=== PATIENT | male | born 1985 | race Caucasian/White ===

== ENCOUNTER 2017-11-03 11:17 | Day surgery (SDC) | payer OTHER ==
[~2017-11-03] VITALS: Ht 185.4 cm; Wt 117.3 kg
[~2017-11-03 11:17] MED LIST: PERCOCET 10/1 TABLET PO
[2017-11-03 11:40] VITALS: BP 133/81
[2017-11-03] MEDS ORDERED: OXYCODONE-APAP1 EACH PO (16:51)
[2017-11-03 18:31] VITALS: BP 130/85
[2017-11-03 20:15] VITALS: BP 131/83
[2017-11-03 23:59] VITALS: BP 137/70
[2017-11-04 04:16] VITALS: BP 132/70
[2017-11-04 07:22] VITALS: BP 146/68
[2017-11-04 10:59] VITALS: BP 174/72
[2017-11-04 11:19] VITALS: BP 155/72
[2017-11-04 16:27] VITALS: BP 150/77
[2017-11-04 20:47] VITALS: BP 139/80
[2017-11-05 00:18] VITALS: BP 138/76
[2017-11-05 04:23] VITALS: BP 139/76
[2017-11-05 07:20] LABS: BASOPHIL (%) 0.2 % (0-1); EOSINOPHIL (%) 0.2 % (0-5); HEMATOCRIT 39.5 % (38.0-50.0); HEMOGLOBIN 13.6 G/DL (12.5-16.6); IMMATURE GRANULOCYTE (%) 0.3 % (0.0-0.7); LYMPHOCYTE (%) 24.6 % (15-42); LYMPHOCYTE COUNT 1.6 K/uL (1.0-2.8); MCH 30.6 PG (29.0-34.0); MCHC 34.4 G/DL (30.0-36.0); MONOCYTE (%) 8.1 % (3-12); MONOCYTE COUNT 0.5 K/uL (0-0.8); NEUTROPHIL (%) 66.6 % (45-76); NEUTROPHIL COUNT 4.3 K/uL (1.8-6.4); RBC DIS.WIDTH-CV 12.4 % (11.8-14.6); RBC DIS.WIDTH-SD 40.3 % (39-53); RED BLOOD COUNT 4.44 M/uL (4.00-5.50); WHITE BLOOD COUNT 6.4 K/uL (4.1-10.2)
[2017-11-05 07:44] LABS: CREATININE 0.9 MG/DL (0.6-1.3); GFR ESTIMATE (CALCULATED) > 59 mL/min/ (58.99-99999); UREA NITROGEN (BUN) 16 mg/dL (9-23)
[2017-11-05 07:48] LABS: PLAT.SUFFICIENCY DECREASED; PLATELET COUNT 109 K/uL (156-360)
[2017-11-05 08:00] VITALS: BP 142/78
[2017-11-05 12:01] VITALS: BP 152/94
[2017-11-05 16:10] VITALS: BP 131/82
[2017-11-05 19:57] VITALS: BP 149/77
[2017-11-06 00:30] VITALS: BP 132/70
[2017-11-06 03:39] VITALS: BP 153/91
[2017-11-06 06:30] LABS: HEMATOCRIT 37.6 % (38.0-50.0); HEMOGLOBIN 12.9 G/DL (12.5-16.6); MCH 30.6 PG (29.0-34.0); MCHC 34.3 G/DL (30.0-36.0); MCV 89.1 FL (86-99); RBC DIS.WIDTH-CV 12.5 % (11.8-14.6); RBC DIS.WIDTH-SD 40.4 % (39-53); RED BLOOD COUNT 4.22 M/uL (4.00-5.50); WHITE BLOOD COUNT 6.1 K/uL (4.1-10.2)
[2017-11-06 06:41] LABS: PLATELET COUNT 148 K/uL (156-360)
[2017-11-06 08:14] VITALS: BP 143/101
[2017-11-06] MEDS ORDERED: AUGMENTIN875 MG PO (14:55)
[2017-11-06] MEDS ORDERED: COMBIVENT RESPIM4 GM IH (14:55)
== END 2017-11-06 16:24 | disposition home or self-care (01) ==
LOC: SDC 11:17 → 3EAST 16:30 → 2SOUTH 16:30 → ENRESERV 16:50 → 3EAST 18:11
PROVIDERS: Hospitalist; Internal Medicine; Neurological Surgery
PROC: 0RB30ZZ Excision of Cervical Vertebral Disc, Open Approach (ICD-10-PCS; principal; 2017-11-03)
PROC: 0RG10A0 Fusion of Cervical Vertebral Joint with Interbody Fusion Device, Anterior Approach, Anterior Column, Open Approach (ICD-10-PCS; principal; 2017-11-03)
PROC: 0RP30JZ Removal of Synthetic Substitute from Cervical Vertebral Disc, Open Approach (ICD-10-PCS; 2017-11-03)
DX: M50.021 Cervical disc disorder at C4-C5 level with myelopathy (principal); M47.12 Other spondylosis with myelopathy, cervical region; J69.0 Pneumonitis due to inhalation of food and vomit; R09.02 Hypoxemia; R11.10 Vomiting, unspecified; E66.9 Obesity, unspecified; Z68.34 Body mass index [BMI] 34.0-34.9, adult; R00.0 Tachycardia, unspecified
CPT/HCPCS: 71045; 71275; 72020; 76000; 82565; 83605; 84520; 85025; 85027; 85379; 87040; 87070; 87205; 93005; 94640; 94640 76; 94799; 99202; C1713; G0378; J0131; J0295; J0330; J0456; J0690; J1100; J1170; J1885; J2250; J2405; J2710; J2765; J3010; J3480; J7050; J7120; J7643; Q0169